=== PATIENT | female | born 1970 | race African-American/Black ===

== ENCOUNTER 2018-04-23 10:48 | Observation (INO) | payer OTHER ==
[2018-04-23] MEDS ORDERED: NITROGLYCERIN (SL) 0.4 MG TAB SL (13:00)
[2018-04-23 13:02] LABS: ADD MAN DIFF? NO
[2018-04-23] MEDS: ASPIRIN 325 MG TAB PO (13:05)
[2018-04-23] MEDS: NITROGLYCERIN 2% 1 GM OINT PKT TD (13:05)
[2018-04-23] MEDS: ONDANSETRON 4 MG INJ IV (13:05)
[2018-04-23] MEDS: morphine 4 MG/ML VIAL IV (13:05)
[2018-04-23 13:14] LABS: WHITE BLOOD COUNT 5.2 10^3/ul (4.8-10.8)
[2018-04-23 13:14] LABS: BASOPHILS % 0.6 % (0.0-2.0); EOSINOPHILS # 0.3 10^3/ul (0.0-0.5); HEMATOCRIT 39.9 % (37.0-47.0); HEMOGLOBIN 12.5 g/dl (12.0-16.0); LYMPHOCYTES # 1.9 10^3/ul (0.8-2.9); LYMPHOCYTES % 36.3 % (15.0-51.0); MEAN CORPUSCULAR HEMOGLOBIN 26.7 pg (29.0-33.0); MEAN CORPUSCULAR HGB CONC 31.3 g/dl (32.0-37.0); MEAN CORPUSCULAR VOLUME 85.3 fl (82.0-101.0); MEAN PLATELET VOLUME 9.3 fl (7.4-10.4); MONOCYTE # 0.4 10^3/ul (0.3-0.9); NEUTROPHIL # 2.6 10^3/ul (1.6-7.5); NEUTROPHILS % 49.9 % (39.0-77.0); PLATELET COUNT 297 10^3/UL (140-415); RED BLOOD COUNT 4.68 10^6/ul (4.20-5.40); RED CELL DISTRIBUTION WIDTH 12.6 % (11.5-14.5)
[2018-04-23 13:40] LABS: ALANINE AMINOTRANSFERASE 21 IU/L (13-69); ALBUMIN 4.7 g/dl (3.3-4.9); ALBUMIN/GLOBULIN RATIO 1.23; ALKALINE PHOSPHATASE 91 IU/L (42-121); ANION GAP 13 (5-13); ASPARTATE AMINO TRANSFERASE 23 IU/L (15-46); BILIRUBIN,INDIRECT 0.1 mg/dl (0-1.1); BILIRUBIN,TOTAL 0.1 mg/dl (0.2-1.3); BLOOD UREA NITROGEN 10 mg/dl (7-20); CALCIUM 9.7 mg/dl (8.4-10.2); CARBON DIOXIDE 27 mmol/L (21-31); CHLORIDE 103 mmol/L (97-110); CREATININE 0.68 mg/dl (0.44-1.00); Estimated GFR > 60 mL/min (>60); GLUCOSE 100 mg/dl (70-220); POTASSIUM 4.5 mmol/L (3.5-5.1); SODIUM 143 mmol/L (135-144); TOTAL PROTEIN 8.5 g/dl (6.1-8.1)
[2018-04-23 13:51] LABS: TROPONIN-I < 0.012 ng/ml (0.000-0.120)
[2018-04-23] MEDS: ACETAMINOPHEN 325 MG TAB PO (14:35)
[2018-04-23] MEDS: SOD CHLORIDE 0.9% 1,000 ML IV (14:46)
[2018-04-23] MEDS ORDERED: NACL 0.9% 3 ML SYG IV (15:00)
[2018-04-23] MEDS ORDERED: morphine 4 MG/ML VIAL IV (15:00)
[2018-04-23] MEDS ORDERED: ACETAMINOPHEN 325 MG TAB PO ×3 (15:00)
[2018-04-23] MEDS ORDERED: ONDANSETRON 4 MG INJ IV ×3 (15:00)
[2018-04-23] MEDS: SOD CHLORIDE 0.9% 100 ML (15:59)
[2018-04-23] MEDS: IOHEXOL 100 ML (16:00)
[2018-04-23] MEDS: HYDROCODONE/APAP (5/325) TAB PO (17:58)
[2018-04-23 19:34] LABS: TROPONIN-I < 0.012 ng/ml (0.000-0.120)
[2018-04-23] MEDS: ATORVASTATIN 80 MG TAB PO (21:20)
[2018-04-23] MEDS: FAMOTIDINE 20 MG TAB PO (21:22)
[2018-04-23] MEDS: HEPARIN 5,000 UNIT/1 ML VIAL SC (21:28)
[2018-04-24 01:35] LABS: TROPONIN-I < 0.012 ng/ml (0.000-0.120)
[2018-04-24 05:39] LABS: ADD MAN DIFF? NO
[2018-04-24 05:49] LABS: BASOPHILS % 0.8 % (0.0-2.0); EOSINOPHILS # 0.3 10^3/ul (0.0-0.5); EOSINOPHILS % 5.1 % (0.0-7.0); HEMATOCRIT 35.6 % (37.0-47.0); HEMOGLOBIN 11.3 g/dl (12.0-16.0); LYMPHOCYTES # 1.7 10^3/ul (0.8-2.9); LYMPHOCYTES % 34.3 % (15.0-51.0); MEAN CORPUSCULAR HEMOGLOBIN 27.4 pg (29.0-33.0); MEAN CORPUSCULAR HGB CONC 31.7 g/dl (32.0-37.0); MEAN CORPUSCULAR VOLUME 86.2 fl (82.0-101.0); MEAN PLATELET VOLUME 9.3 fl (7.4-10.4); MONOCYTE # 0.4 10^3/ul (0.3-0.9); MONOCYTES % 7.9 % (0.0-11.0); NEUTROPHIL # 2.6 10^3/ul (1.6-7.5); NEUTROPHILS % 51.7 % (39.0-77.0); PLATELET COUNT 272 10^3/UL (140-415); RED BLOOD COUNT 4.13 10^6/ul (4.20-5.40); RED CELL DISTRIBUTION WIDTH 12.7 % (11.5-14.5)
[2018-04-24 05:49] LABS: WHITE BLOOD COUNT 5.1 10^3/ul (4.8-10.8)
[2018-04-24 06:08] LABS: ALANINE AMINOTRANSFERASE 20 IU/L (13-69); ALBUMIN 3.9 g/dl (3.3-4.9); ALBUMIN/GLOBULIN RATIO 1.25; ALKALINE PHOSPHATASE 71 IU/L (42-121); ANION GAP 14 (5-13); ASPARTATE AMINO TRANSFERASE 19 IU/L (15-46); BILIRUBIN,INDIRECT 0.1 mg/dl (0-1.1); BILIRUBIN,TOTAL 0.1 mg/dl (0.2-1.3); BLOOD UREA NITROGEN 13 mg/dl (7-20); CALCIUM 9.3 mg/dl (8.4-10.2); CARBON DIOXIDE 24 mmol/L (21-31); CHLORIDE 104 mmol/L (97-110); CHOL/HDL RATIO 4.5 RATIO; CHOLESTEROL 180 mg/dl (100-200); CREATININE 0.81 mg/dl (0.44-1.00); Estimated GFR > 60 mL/min (>60); GLUCOSE 107 mg/dl (70-220); HDL CHOLESTEROL 40 mg/dl (34-88); LDL CHOLESTEROL,CALCULATED 117 mg/dl; MAGNESIUM 2.1 mg/dl (1.7-2.5); POTASSIUM 4.8 mmol/L (3.5-5.1); SODIUM 142 mmol/L (135-144); TRIGLYCERIDES 113 mg/dl (0-149)
[2018-04-24 06:21] LABS: CREATINE KINASE 146 IU/L (23-200)
[2018-04-24] MEDS: HEPARIN 5,000 UNIT/1 ML VIAL SC ×2 (07:03→14:00)
[2018-04-24] MEDS: AMLODIPINE 10 MG TAB PO (08:17)
[2018-04-24] MEDS: MAGNESIUM OXIDE 400 MG TAB PO (08:18)
[2018-04-24] MEDS: FAMOTIDINE 20 MG TAB PO (08:18)
[2018-04-24] MEDS: ASPIRIN 81 MG TAB PO (08:18)
[2018-04-24] MEDS: REGADENOSON 0.4 MG/5 ML SYG (14:47)
[2018-04-24] MEDS ORDERED: ATORVASTATIN 20 MG TAB PO (21:00)
[2018-04-24] MEDS ORDERED: METOPROLOL (XL) 25 MG TAB PO (21:00)
== END 2018-04-24 17:24 | disposition home or self-care (01) ==
LOC: E/R 10:48 → 6WM 14:47
DX: R07.9 Chest pain, unspecified (principal); I10 Essential (primary) hypertension
CPT/HCPCS: 36415; 71045; 71275; 78452; 80053; 80061; 82550; 83036; 83735; 84443; 84484; 84703; 85025; 93005; 93017; 93306; 96374; 96375; 99285-25; G0378